=== PATIENT | female | born 1995 | race Caucasian/White ===

== ENCOUNTER 2019-02-20 16:36 | Emergency (ER) | payer SELFPAY ==
[2019-02-20] MEDS ORDERED: Cephalexin 500 MG CAP ONE (17:15)
[2019-02-20] MEDS ORDERED: Sulfameth/Trimethoprim DS 800-160mg TAB ONE (17:15)
== END 2019-02-20 17:55 | disposition home or self-care (01) ==
LOC: MADERS 16:36
DX: R21 Rash and other nonspecific skin eruption (principal); F17.210 Nicotine dependence, cigarettes, uncomplicated
CPT/HCPCS: 99282